=== PATIENT | female | born 1950 | race African-American/Black ===

== ENCOUNTER 2017-08-13 10:56 | Outpatient (CLI) | payer MEDICARE, OTHER ==
--- NOTE | 2017-08-13 14:31 | MMO ---
BILATERAL DIGITAL SCREENING MAMMOGRAMS WITH CAD COMPARISON: 07/08/2016 and 06/13/2014. FINDINGS: There are scattered fibroglandular densities with benign-appearing calcifications. No suspicious ma sses, calcifications, or architectural distortion is seen. IMPRESSION: BI-RADS Category 2: Benign findings. Routine annual mammographic screening is recommended. POS: [facility]
== END 2017-08-13 10:57 | disposition home or self-care (01) ==
LOC: MAMMO 10:56
PROVIDERS: ATTEND Family Medicine
DX: Z12.31 Encounter for screening mammogram for malignant neoplasm of breast (principal)
CPT/HCPCS: 77067; G0202

== ENCOUNTER 2018-05-07 16:36 | Emergency (ER) | payer MEDICARE, OTHER ==
[2018-05-07 17:37] LABS: Band 1 % (5-11); Eosinophils 2 % (0-10); Hemoglobin 12.5 g/dL (12.0-16.0); Lymphocytes 31 % (21-51); MDiff Complete? YES; Mean Corpuscular HGB CONC 32.6 g/dL (32.0-36.0); Mean Corpuscular Hemoglobin 26.5 pg (27.0-31.0); Mean Corpuscular Volume 81.4 fL (78.0-98.0); Mean Platelet Volume 8.2 fL (7.4-10.4); Monocytes 12 % (0-10); Neutrophil 50 % (42-75); PLT Morphology Comment Appears Adequate; Platelet Count 258 thou/uL (130-400); RBC Distribution Width 12.2 % (11.5-14.5); Reactive Lymphocytes 3 % (0-10); Red Blood Cell (RBC) Count 4.73 mill/uL (4.20-5.40)
[2018-05-07 17:46] LABS: CKMB 3.6 ng/mL (0-6.6); Troponin I 0.011 ng/mL (< 0.028)
--- NOTE | 2018-05-07 18:27 | RAD ---
PA AND LATERAL CHEST X-RAY 05/07/18 HISTORY: Dyspnea and shortness of breath. Dry cough for four days. COMPARISON: None available. FINDINGS: The cardiac silhouette and pulmonary vasculature are within normal limits. The lungs are clear. There is mild eventration of the anterior medial right hemidiaphragm. Vascular calcifications seen in the thoracic aorta. There are degenerative changes noted in the spine with suggestion of slight wedging deformities involving a few mid thoracic vertebral bodies of uncertain age. IMPRESSION: 1. No acute cardiopulmonary process. 2. Suggestion of slight wedge shaped deformities involving a few mid thoracic vertebral bodies of indeterminate age. POS: [facility]
[2018-05-07 19:45] LABS: ALT (SGPT) 17 U/L (8-55); AST (SGOT) 21 U/L (5-34); Albumin 4.2 g/dL (3.4-4.8); Alkaline Phosphatase 57 U/L (40-150); Anion Gap 14 mmol/L (10-20); BUN (Urea Nitrogen) 14 mg/dL (9.8-20.1); Bilirubin, Total 0.7 mg/dL (0.2-1.2); Calc. Creatinine Clearance 0 mL/min (70-130); Calcium 9.6 mg/dL (7.8-10.44); Carbon Dioxide 26 mmol/L (23-31); Chloride 103 mmol/L (98-107); Estimated GFR-MDRD 82; Globulin 3.1 g/dL (2.4-3.5); Glucose 108 mg/dL (80-115); Potassium 3.5 mmol/L (3.5-5.1); Protein, Total 7.3 g/dL (6.0-8.3); Sodium 139 mmol/L (136-145)
[2018-05-07 20:25] LABS: CKMB 3.7 ng/mL (0-6.6); Troponin I 0.011 ng/mL (< 0.028)
== END 2018-05-07 21:03 | disposition home or self-care (01) ==
LOC: SCSER 16:36
DX: R06.02 Shortness of breath (principal); E11.9 Type 2 diabetes mellitus without complications; I10 Essential (primary) hypertension; Z79.899 Other long term (current) drug therapy; Z79.84 Long term (current) use of oral hypoglycemic drugs
CPT/HCPCS: 36415; 71046; 80053; 82553; 83880; 84484; 85025; 93005; J7620

== ENCOUNTER 2018-08-14 10:01 | Outpatient (CLI) | payer MEDICARE, OTHER | END 2018-08-14 10:02 | disposition home or self-care (01) | LOC: BICMAMMO 10:01 | PROVIDERS: ATTEND Family Medicine | DX: Z12.31 Encounter for screening mammogram for malignant neoplasm of breast (principal) | CPT/HCPCS: 77063; 77067 ==

== ENCOUNTER 2019-08-16 12:45 | Outpatient (CLI) | payer MEDICARE, OTHER ==
--- NOTE | 2019-08-16 14:06 | ULT ---
RIGHT BREAST ULTRASOUND: Date: 08/16/19 HISTORY: Patient feels a lump in the axillary region of the right breast. FINDINGS: Real-time imaging of the area of patient's concern fails to show any suspicious solid or cystic mass. No abnormal lymph nodes visualized. IMPRESSION: BI-RADS Category 2 - Benign findings. Routine mammographic follow-up is recommended. POS: [facility]
--- NOTE | 2019-08-16 14:42 | MMO ---
Bilateral MAMMO Bilat Diag [facility]. CLINICAL HISTORY: Patient is 69 years old and is seen for diagnostic exam and palpable abnormality in the left breast. The patient has the following family history of breast cancer: cousin female. The patient has no personal history of cancer. VIEWS: The views performed were: bilateral craniocaudal with tomosynthesis; bilateral mediolateral oblique with tomosynthesis; bilateral mediolateral with tomosynthesis; and right exaggerated craniocaudal. FILMS COMPARED: The present examination has been compared to prior imaging studies performed at [facility] on 07/08/2016, 08/13/2017, 08/14/2018 and 08/16/2019. This study has been interpreted with the assistance of computer-aided detection. MAMMOGRAM FINDINGS: The breasts are almost entirely fat. No mammographic or sonograhic abnormality is seen at the site of palpable concern in the allixary region of right breast. There are no suspicious masses, suspicious calcifications, or new areas of architectural distortion. IMPRESSION: THERE IS NO MAMMOGRAPHIC EVIDENCE OF MALIGNANCY. A ROUTINE FOLLOW-UP MAMMOGRAM IN 1 YEAR IS RECOMMENDED. THE RESULTS OF THIS EXAM WERE SENT TO THE PATIENT. ACR BI-RADS Category 2 - Benign finding MAMMOGRAPHY NOTE: 1. A negative mammogram report should not delay a biopsy if a dominant of clinically suspicious mass is present. 2. Approximately 10% to 15% of breast cancers are not detected by mammography. 3. Adenosis and dense breasts may obscure an underlying neoplasm. Reported by: ANNE GROSSMAN MD Electonically Signed: [id number]
== END 2019-08-16 12:46 | disposition home or self-care (01) ==
LOC: BICMAMMO 12:45
PROVIDERS: ATTEND Family Medicine
DX: N63.31 Unspecified lump in axillary tail of the right breast (principal)
CPT/HCPCS: 76642; 77066; G0279